=== PATIENT | male | born 1965 | race Caucasian/White ===

== ENCOUNTER 2016-12-14 20:38 | Emergency (ER) | payer OTHER ==
[~2016-12-14] VITALS: Ht 172.7 cm; Wt 132.1 kg
[2016-12-14 20:44] VITALS: TEMP 36.8; Ht 172.7 cm; Wt 132.1 kg
--- NOTE | 2016-12-14 21:10 | DIAGNOSTIC IMAGING REPORT ---
CHEST 2 VIEWS ROUTINE CLINICAL HISTORY: cough and fever x 2 wks cough COMPARISON STUDY: No previous studies for comparison. FINDINGS: The bones soft tissues and hemidiaphragms are normal. The cardiomediastinal silhouette is normal. The lungs are clear. The pulmonary vasculature is normal. Calcified granuloma right base IMPRESSION: No acute process. Electronically signed by: Kirk Stack M.D. 12/14/2016 9:07 PM Dictated Date/Time: 12/14/2016 9:07 PM
[2016-12-14] MEDS ORDERED: ALBUTEROL HFA 8 GM INHALER INH ONE (21:30)
[2016-12-14] MEDS ORDERED: AZITHROMYCIN 250 MG TAB PO ONE (21:30)
[2016-12-14] MEDS ORDERED: OXYCODONE IR HOME PACK PO ONE (21:30)
[2016-12-14] MEDS ORDERED: AZIT250T PO (21:36)
[2016-12-14] MEDS ORDERED: OXYC1TAB3 PO (21:36)
[2016-12-14 21:50] VITALS: BP 151/108; PULSE 90; O2SAT 97
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
[2017-02-10] MEDS ORDERED: ECHI1CAP PEG (09:28)
[2017-02-10] MEDS ORDERED: VITAMIN A PO (09:28)
[2017-02-10] MEDS ORDERED: [UNRECOGNIZED DRUG - OTHER] PO (09:28)
[2017-02-10] MEDS ORDERED: vitamin B PO (09:28)
[2017-02-10] MEDS ORDERED: LISI-461 PO (09:29)
== END 2016-12-14 21:51 | disposition home or self-care (01) ==
LOC: C.EDB 20:39 → C.EDC 21:51
DX: J20.9 Acute bronchitis, unspecified (principal); M54.12 Radiculopathy, cervical region; J43.9 Emphysema, unspecified; F17.210 Nicotine dependence, cigarettes, uncomplicated; I10 Essential (primary) hypertension; Z87.01 Personal history of pneumonia (recurrent); Z80.9 Family history of malignant neoplasm, unspecified; Z82.49 Family history of ischemic heart disease and other diseases of the circulatory system; Z79.899 Other long term (current) drug therapy

== ENCOUNTER 2017-01-10 15:52 | Emergency (ER) | payer OTHER ==
[~2017-01-10] VITALS: Ht 172.7 cm; Wt 130.5 kg
[~2017-01-10 15:52] MED LIST: AZIT250T PO; OXYC1TAB3 PO
[2017-01-10 15:58] VITALS: TEMP 36.8; Ht 172.7 cm; Wt 130.5 kg
[2017-01-10] MEDS ORDERED: MULT-506 PO (16:06)
[2017-01-10] MEDS ORDERED: HYDR-5688 PO (16:21)
[2017-01-10] MEDS ORDERED: PRED50TA PO (16:21)
[2017-01-10 16:36] VITALS: BP 143/90; PULSE 80; O2SAT 95
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
[2017-02-10] MEDS ORDERED: vitamin B PO (09:28)
[2017-02-10] MEDS ORDERED: VITAMIN A PO (09:28)
[2017-02-10] MEDS ORDERED: [UNRECOGNIZED DRUG - OTHER] PO (09:28)
[2017-02-10] MEDS ORDERED: ECHI1CAP PEG (09:28)
[2017-02-10] MEDS ORDERED: LISI-461 PO (09:29)
== END 2017-01-10 16:38 | disposition home or self-care (01) ==
LOC: C.EDB 15:54 → C.EDD 16:38
DX: M54.2 Cervicalgia (principal); M79.601 Pain in right arm; M79.602 Pain in left arm; G89.29 Other chronic pain; J43.9 Emphysema, unspecified; I10 Essential (primary) hypertension; Z87.01 Personal history of pneumonia (recurrent); Z80.9 Family history of malignant neoplasm, unspecified; Z82.49 Family history of ischemic heart disease and other diseases of the circulatory system; F17.210 Nicotine dependence, cigarettes, uncomplicated; Z79.899 Other long term (current) drug therapy

== ENCOUNTER → 2017-01-31 | Outpatient (CLI) | payer OTHER ==
[~2017-01-31] MED LIST changes: -AZIT250T PO; +ECHI1CAP PEG; +HYDR-5688 PO; +LISI-461 PO; +MISCCAP55; +MULT-506 PO; +OXYC-609; -OXYC1TAB3 PO; +PRVHFAIN INH; +VITAMIN A PO; +[UNRECOGNIZED DRUG - OTHER] PO; +vitamin B PO
--- NOTE | 2017-01-31 21:13 | DIAGNOSTIC IMAGING REPORT ---
BONY ORBITS 3 VIEWS CLINICAL HISTORY: MRI clearance. FINDINGS: 3 views of the bony orbits are obtained. Correlation is made with CT of the brain dated 03/27/2012. There is no radiodense/metallic foreign body seen in the region of the bony orbits. The bony orbits are intact as imaged. The visualized paranasal sinuses and the mastoid air cells appear clear. The imaged calvarium appears intact. IMPRESSION: There is no radiodense/metallic foreign body seen in the region of the bony orbits. Electronically signed by: Davis Hollingsworth M.D. 01/31/2017 9:12 PM Dictated Date/Time: 01/31/2017 9:11 PM
--- NOTE | 2017-01-31 22:23 | DIAGNOSTIC IMAGING REPORT ---
MRI OF THE CERVICAL SPINE WITHOUT IV CONTRAST CLINICAL HISTORY: Chronic neck pain. Upper extremity numbness. COMPARISON STUDY: No priors. TECHNIQUE: MRI of the cervical spine is performed utilizing various T1 and T2-weighted sequences in the axial and sagittal planes. IV contrast was not administered for this examination. The examination is degraded by motion artifact, and several sequences need to be repeated. FINDINGS: Cervical spine: Vertebral body height is maintained throughout the cervical spine. There is minimal anterolisthesis at C6-C7. Alignment is otherwise preserved. There is straightening of the cervical lordosis with reversal centered at C4. The atlantodental articulation appears maintained. The spinous processes are intact as visualized. No destructive bony lesion is seen. Marrow signal intensity is normal. Intervertebral discs: There is degenerative disc desiccation throughout the cervical spine. Mild loss of height is seen at C4-C5 through C6-C7. Spinal cord: The cervical spinal cord is normal in morphology and signal intensity. C2-C3: Facet arthropathy causes minimal left-sided neural foraminal stenosis. C3-C4: A posterior disc osteophyte complex effaces the ventral cord. Uncovertebral and facet arthropathy cause moderate to severe bilateral neuroforaminal stenosis. C4-C5: A posterior disc osteophyte complex effaces the ventral cord. The minimum AP canal diameter measures 6.5 mm. Uncovertebral and facet arthropathy contribute to severe bilateral neural foraminal stenosis. C5-C6: A posterior disc osteophyte complex eccentric to the right abuts the ventral cord. Uncovertebral and facet arthropathy cause moderate to severe right and mild left neural foraminal stenosis. C6-C7: A posterior disc osteophyte complex eccentric to the left abuts the ventral cord. Uncovertebral and facet arthropathy contribute to moderate left and [id number] right neural foraminal stenosis. C7-T1: Unremarkable. Soft tissues: The prevertebral and paraspinous soft tissues are normal in appearance. Brain parenchyma: Partially visualized brain parenchyma at the skull base is grossly normal in appearance. IMPRESSION: 1. Moderate to advanced multilevel cervical spondylosis with multilevel acquired compromise of the central canal. This is greatest at C4-C5 and C5-C6. See discussion for detailed level by level analysis. 2. The cervical spinal cord is normal in morphology and signal intensity. Dictated: 01/31/2017 10:11 PM Transcribed: 01/31/2017 10:23 PM [email or web address] Electronically signed by: Davis Hollingsworth M.D. 01/31/2017 10:29 PM Dictated Date/Time: 01/31/2017 10:11 PM
--- NOTE | 2017-03-10 08:11 | Discharge Instructions ---
Discharge Instructions Date of Service Mar 10, 2017. Admission Reason for Admission: Spinal Stenosis Discharge Discharge Diagnosis / Problem: stenos , partial paralysis Discharge Goals Goal(s): Improve function Activity Recommendations Activity Limitations: resume your previous activity Lifting Limitations: no more than 5 pounds Exercise/Sports Limitations: until after follow-up appointment May Resume Sexual Activity: after follow-up appointment Shower/Bathe: keep incision dry . Instructions / Follow-Up Instructions / Follow-Up MEDICATIONS: Please take your prescriptions as instructed at your pre-op appointment. SPECIAL CARE: The following information is intended to answer some of the common questions and concerns regarding your surgery. Each patient is an individual and receives individual counselling throughout the course of treatment, from diagnosis to surgery all the way through recovery. What follows is not an exhaustive list, but should be a useful guide to some of the common questions and concerns patients have regarding their surgeries. These are not provided to keep you from calling us; rather, they give you something accurate and concrete to reference as you recover from your procedure. If you need us, we are available to you. As always, if you are not sure about something, call us at [phone]. MEDICAL EMERGENCIES: For these conditions, call 911 or go to your local hospital-based Emergency Department - not [facility] or equivalent. * Paralysis * Severe chest pain or difficulty breathing * Swelling or redness of either leg Spine procedures can be rather complex and though complications are rare, they do occur. In such cases, effective advice regarding emergency situations cannot always be addressed over the telephone. You may be referred to the emergency department for more effective management of your problem. Activity Limitations: It is important to give your body time to heal, so please limit your activities : * In general, don't do anything that moves your spine too much. You should avoid contact sports, twisting or heavy lifting while you recover. * 5-10 pounds is all you should attempt to lift. * You should not plan on driving for approximately 3 weeks and you should avoid traveling more than 30-45 minutes at a time. Longer trips should be broken down with walking breaks spaced appropriately. * Physical therapy is not usually required. * Walking and good posture practices will help you recover and regain your function. * Avoid straining or sudden changes in position. * In general, the goal is to take it easy and recover. Don't cause any new problems. Just relax. Showers: * Do not take a bath, use a Jacuzzi or hot tub or otherwise submerge your incision. * It is usually safe to take a shower 4-5 days after your surgery. * Your incision does not require any special creams or ointments. * Simply clean it with soap and water, dry and re-dress with a clean bandage afterwards. Incision: * Keep incision clean, dry and protected until your first follow-up appointment. * Some amount of drainage and redness is normal. Any drainage should be fairly clear and not have a foul odor. * If you feel anything is wrong or you have excessive drainage, please call us. * Your stitches and salina will be removed 10-14 days after your surgery. At the time of your first post-op visit. * Neck surgeries are typically closed with a suture underneath the skin. The steri-strips over the incision should be maintained until we see you in the office. Bracing: * You may be provided with a back or neck brace to encourage good posture and prevent injury. It will remind you not to do too much as you heal and will alert others to the fact that you have had a surgery. * Back braces may be removed for showers and when you are resting at home. They must be worn when you are walking around for any period of time or for travel. * For neck surgery, you will likely be provided with two cervical collars. The soft collar ([place] or foam rubber) is worn most commonly throughout the day and while sleeping. The plastic collar (provided at the hospital) is for showering/bathing. * Except while eating, collars should remain in place. More specifically, bracing is provided for a purpose and should be worn. * Please obtain your brace or collars prior to your operation and bring them to the hospital with you on the day of surgery. * You should also bring your collars to your post-op appointment with Dr. Menendez. You should always take good care of your body and practice healthy habits, especially following surgery. You should: * Follow your doctor's treatment plan * Sit and stand properly with good posture (ears over shoulders, shoulders over hips) Don't slouch * Learn to lift correctly * Exercise regularly (low-impact aerobic exercise is especially good, but check with your doctor first) * Generally, be up and walking for 5-10 minutes at a time at least 3-4 times per day from the day you get home * Increasing walking to tolerance until you can walk for 20-30 minutes at a time * Attain and maintain a healthy body weight * Eat healthy foods ( a well-balanced, low-fat diet rich in fruits and vegetables) and get enough calcium * Avoid excessive use of alcohol When to call our office - If you notice any of the following: * Increased pain not relieve by pain medicine * Fevers greater then 100 degrees F, chills or flu symptoms * Increased redness around incision * Drainage from the incision that is not clear * Any foul smelling drainage * Swelling or fluid collection beneath the skin Miscellaneous: * In the hospital, you may be given a walker or cane for support while walking. These are temporary needs and are intended to prevent injuries due to falls. You may discontinue them when you feel strong and steady enough on your feet. * Sleep in a comfortable position. We find that many patients find a lounge chair or recliner with several pillows to be beneficial in the early post-operative period. * The support stockings should be used for 7-10 days and may be discontinued when you are back to walking more and conducting usual household activities. No problem is insignificant. We are here to help you and get you well. Contact us at [phone]. Definitions: Foraminotomy: If part of the disc or a bone spur (osteophyte) is pressing on a nerve as it leaves the vertebra (through an exit called the foramen), a foraminotomy may be done. Otomy means "to make an opening." A foraminotomy is making the opening of the foramen larger, so the nerve can exit without being compressed. Laminotomy: Similar to the foraminotomy, a laminotomy makes a larger opening, this time in your bony plate protecting your spinal canal and spinal cord (the lamina). The lamina may be pressing on your nerve, so the surgeon may make more room for the nerves using a laminotomy. Laminectomy: Sometimes, a laminotomy is not sufficient. The surgeon may need to remove all or part of the lamina. This procedure is called a laminectomy. This can often be done at many levels without any harmful effects. Current Hospital Diet Patient's current hospital diet: Discharge Diet Recommended Diet: Regular Diet Pending Studies Studies pending at discharge: no Medical Emergencies . Who to Call and When: Medical Emergencies: If at any time you feel your situation is an emergency, please call 911 immediately. . Non-Emergent Contact Non-Emergency issues call your: Surgeon . "Provider Documentation" section prepared by Jim Menendez. . VTE Core Measure Inpt VTE Proph given/why not?: Treatment not indicated
--- NOTE | 2017-03-10 08:14 | Progress Note ---
Subjective Date of Service: Mar 10, 2017. Subjective Pt evaluation today including: conversation w/ patient Voiding: no voiding problems Patient is alert oriented has some return of feeling to his right upper extremity minimal to his left lower extremity upper extremity. He is alert oriented mentation clear no chest pain shortness of breath or abdominal discomfort. Problem List Medical Problems: (1) Acute bronchitis Status: Acute (2) Arm pain Status: Acute (3) Depression Status: Acute (4) Neck pain, chronic Status: Acute (5) Radiculitis, cervical Status: Acute (6) Suicidal ideation Status: Acute (7) Suicide gesture Status: Acute Review of Systems Constitutional: + see HPI Assessment and Plan He is 24 hours post surgery which was two-level cervical anterior approach for spinal cord compression. He's doing well the short run. Left carpal tunnel release understate same anesthetic. Continued [facility] stay due to: inadequate oral pain control, ambulation difficulties, home environment unsafe for pt Discharge planning: home with home health
== END | disposition home or self-care (01) ==
LOC: C.MRI 20:26
PROVIDERS: ATTEND Orthopaedic Surgery Orthopaedic Surgery of the Spine
DX: M48.02 Spinal stenosis, cervical region (principal); R20.8 Other disturbances of skin sensation

== ENCOUNTER → 2017-02-10 | Outpatient (CLI) | payer OTHER ==
--- NOTE | 2017-02-10 08:52 | DIAGNOSTIC IMAGING REPORT ---
CT OF THE CERVICAL SPINE CLINICAL HISTORY: CERVICAL SPONDYLOSIS NUMBNESS AND TINGLING IN THE ARMS AND HANDS COMPARISON STUDY: MRI the cervical spine dated 01/31/2017 CT DOSE: 301.59 mGy.cm TECHNIQUE: CT scan of the cervical spine was performed from the skull base to the thoracic inlet. Images are reviewed in the axial, sagittal, and coronal planes. IV contrast was not administered for this examination. FINDINGS: The visualized portions of the lung apices reveal no evidence of pneumothorax. The prevertebral soft tissues are normal. No fractures or subluxations are visualized. There are multilevel degenerative changes. There is prominent anterior osteophytic spurring at multiple levels. At the C3-4 level, there is mild spinal canal narrowing and bilateral foraminal narrowing. At the C4-5 level, there is mild spinal canal narrowing and bilateral foraminal narrowing. The C5-6 level, there is mild to moderate spinal canal narrowing bilateral foraminal narrowing right more severe than left. IMPRESSION: 1. No evidence of acute fracture or traumatic subluxation 2. Multilevel spondylitic changes with multilevel spinal canal narrowing, and multilevel foraminal narrowing due to uncinate spurring. Electronically signed by: Logan Velez M.D. 02/10/2017 8:51 AM Dictated Date/Time: 02/10/2017 8:47 AM
== END | disposition home or self-care (01) ==
LOC: C.CTS 07:46
PROVIDERS: ATTEND Orthopaedic Surgery Orthopaedic Surgery of the Spine
DX: M47.812 Spondylosis without myelopathy or radiculopathy, cervical region (principal)

== ENCOUNTER 2017-03-09 05:34 | Observation (INO) | payer OTHER ==
[2017-02-10 09:30] VITALS: BMI 43.0
--- NOTE | 2017-02-10 10:14 | PAT Medication Instructions ---
Service Date Feb 10, 2017. Current Home Medication List Echinacea (Echinacea), 3 TAB PEG QAM Hydrocodone/Acetaminophen 5MG/325MG ([place] 5MG/325MG), 1-2 TABLET PO Q6 PRN for Pain Lisinopril (Zestril), 10 MG PO QAM Multivitamin (Multivitamin), 1 TAB PO DAILY [vitaamin d], 1 TAB PO QAM [vitamin B], 1 TAB PO QAM [vitmin A], 1 TAB PO QAM Medication Instructions For Your Scheduled Surgery - Hold the following medications 2 weeks prior to surgery: Echinacea (Echinacea), 3 TAB PEG QAM - Hold the following medications the morning of surgery: [vitamin B], 1 TAB PO QAM [vitmin A], 1 TAB PO QAM Multivitamin (Multivitamin), 1 TAB PO DAILY [vitaamin d], 1 TAB PO QAM Lisinopril (Zestril), 10 MG PO QAM - Take the following medications the morning of surgery with a sip of water: Hydrocodone/Acetaminophen 5MG/325MG ([place] 5MG/325MG), 1-2 TABLET PO Q6 PRN for Pain (okay to take up to 4 hours prior to surgery if needed) - Take the following medications as scheduled the night before surgery: Hydrocodone/Acetaminophen 5MG/325MG ([place] 5MG/325MG), 1-2 TABLET PO Q6 PRN for Pain (if needed) If you have any questions please call us at [phone] or [phone] or [phone]
[2017-02-10 10:47] LABS: BASO % 0.5 %; BASO ABS # 0.07 K/uL (0-0.2); COMPLETE YES; EOS % 3.1 %; HEMATOCRIT 44.4 % (42-52); IG% 0.8 %; LYMPH % 27.9 %; LYMPH ABS # 3.66 K/uL (1.2-3.4); MEAN CELL VOLUME 93.5 fL (80-100); MEAN CORPUSCULAR HEMOGLOBIN 31.4 pg (25-34); MEAN CORPUSCULAR HGB CONC 33.6 g/dl (32-36); MONO % 8.9 %; NEUT % 58.8 %; PLATELET COUNT 260 K/uL (130-400); RED BLOOD COUNT 4.75 M/uL (4.7-6.1); WHITE BLOOD COUNT 13.14 K/uL (4.8-10.8)
[2017-02-10 10:56] LABS: INR 0.9 (0.9-1.1)
[2017-02-10 11:11] LABS: URINE APPEARANCE CLEAR (CLEAR); URINE BILIRUBIN NEG (NEG); URINE COLOR DK YELLOW; URINE NITRITE NEG (NEG); URINE PH 5.5 (4.5-7.5); URINE SPECIFIC GRAVITY 1.028 (1.000-1.030); UROBILINOGEN NEG (NEG)
[2017-02-10 11:15] LABS: MANUAL MICROSCOPIC REQUIRED? NO; REVIEW REQ? NO
[2017-02-10 11:44] LABS: BUN/CREATININE RATIO 14.3 (10-20); CREATININE 1.2 mg/dl (0.60-1.40); POTASSIUM 4.4 mmol/L (3.5-5.1)
[2017-02-10 12:45] LABS: CALCIUM 9.1 mg/dl (8.5-10.1)
[~2017-03-09] VITALS: Ht 172.7 cm; Wt 129.9 kg
[2017-03-09] VITALS (11 sets, daily range): BP systolic 104–145; BP diastolic 69–90; PULSE 69–91; TEMP 36.5–36.9; O2SAT 94–97; Ht 172.7 cm; Wt 129.9 kg
[~2017-03-09 05:34] MED LIST changes: -MISCCAP55; -OXYC-609; -PRVHFAIN INH
[2017-03-09] MEDS ORDERED: OXYC-609 (05:55)
[2017-03-09] MEDS ORDERED: MISCCAP55 (05:56)
[2017-03-09] MEDS ORDERED: CEFAZOLIN 3000 MG/65 ML D5W 65 ML IV SCH (06:00)
[2017-03-09] MEDS ORDERED: NSS 1000ML IV SCH (06:00)
[2017-03-09] MEDS ORDERED: LACTATED RINGER'S 1000ML 1,000 ML IV SCH (06:00)
[2017-03-09] MEDS ORDERED: MIDAZOLAM HCL 1 MG/ML 2ML VIAL ONE (06:50)
[2017-03-09] MEDS ORDERED: FENTANYL CITRATE INJ 50 MCG/1 ML 2 ML VIAL ONE ×2 (06:50→09:14)
[2017-03-09] MEDS ORDERED: HYDROmorphone INJ 2 MG/ML SYR/VIAL ONE (06:51)
[2017-03-09] MEDS ORDERED: KETAMINE HCL INJ 50 MG/ML 10 ML VIAL ONE (06:51)
--- NOTE | 2017-03-09 07:00 | History and Physical ---
History & Physical Date Mar 09, 2017. Chief Complaint Neck and bilateral upper extremity pain. Weakness also sensation History of Present Illness The patient is a 52 year old male with complaints of lower upper extremity difficulties numbness tingling weakness to biceps and deltoid function. Mr. bilateral lower bilateral upper extremities left greater than right. He is here for elective surgery today for anterior cervical discectomy C3 through C5 F carpal tunnel release Past Medical/Surgical History Medical Problems: (1) Cardiac contusion (2) Emphysema of lung (3) Hypertension (4) Knee effusion (5) Leg abrasion (6) Pneumonia Additional History Hepatic Disease: No Endocrine Disorder: No Kidney Disease: No Hypertension: Yes Heart Disease: No Bleeding Tendencies: No Infectious Diseases: No Allergies Coded Allergies: No Known Allergies (Unverified , 03/09/17) Home Medications Scheduled Echinacea (Echinacea), 3 TAB PEG QAM Lisinopril (Zestril), 10 MG PO QAM Multivitamin (Multivitamin), 1 TAB PO DAILY [vitaamin d], 1 TAB PO QAM [vitamin B], 1 TAB PO QAM [vitmin A], 1 TAB PO QAM Scheduled PRN Hydrocodone/Acetaminophen 5MG/325MG ([place] 5MG/325MG), 1-2 TABLET PO Q6 PRN for Pain Miscellaneous Medications Misc Natural Products (Dandelion Root) Oxycodone HCl (Oxycodone HCl) Physical Examination Skin: warm/dry, no rash Eyes: normal inspection, sclerae normal ENT: normal ENT inspection Head: normocephalic Neck: trachea midline Respiratory/Chest: no respiratory distress Cardiovascular: regular rate, rhythm Abdomen / GI: normal bowel sounds Back: normal inspection Extremities: + pertinent finding (Jazzy a deltoid and biceps function. Loss of sensation C4 5 C6 nerve root distribution. Positive Phalen's test positive Nehls sign also has a Spurling's maneuver patient to the left and right reproduces his pain) Neurologic/Psych: + pertinent finding (loss of sensation loss of strength and positive Tinel's sign) Diagnosis Spinal cord compression C3 4 C4 5 cervical spine. Bilateral carpal tunnel syndrome left greater than right ASA Classification: ASA Class III Plan of Treatment Anterior cervical discectomy and fusion C3 4 C4 5 cervical spine iliac crest bone graft. Carpal tunnel release on the left
[2017-03-09] MEDS ORDERED: THROMBIN FOR SOLN 20000 UNIT KIT ONE ×2 (07:01→07:03)
[2017-03-09] MEDS ORDERED: BACITRACIN 50000 UNIT VIAL ONE (07:01)
[2017-03-09] MEDS ORDERED: GELATIN SPONGE SZ 100 ONE (07:01)
[2017-03-09] MEDS ORDERED: BUPIVACAINE/EPINEPHRINE 0.25% 1:200,000 30 ML VIAL ONE ×2 (07:04→07:05)
[2017-03-09] MEDS ORDERED: BUPIVACAINE/EPINEPHRINE 0.5% MPF 1:200,000 10 ML VIAL ONE (07:15)
[2017-03-09] MEDS ORDERED: ACETAMINOPHEN 1000 MG/100 ML IV IV ONE (07:15)
[2017-03-09] MEDS ORDERED: EpHEDrine SULFATE INJ 50 MG/ML AMP IV PRN (08:15)
[2017-03-09] MEDS ORDERED: PHENYLEPHRINE 100MCG/ML 5ML SYR IV PRN (08:15)
[2017-03-09] MEDS ORDERED: ONDANSETRON INJ 2 MG/ML 2 ML VIAL IV PRN ×3 (08:15→10:15)
[2017-03-09] MEDS ORDERED: ATROPINE SULFATE 0.1 MG/ML 5ML SYR IV PRN (08:15)
[2017-03-09] MEDS ORDERED: LABETALOL HCL IV 5 MG/ML 20ML IV PRN (08:15)
[2017-03-09] MEDS ORDERED: NALOXONE HCL 0.4 MG/1 ML VIAL/CARP IV PRN (08:15)
[2017-03-09] MEDS ORDERED: FLUMAZENIL 0.1 MG/1 ML 10 ML VIAL IV PRN (08:15)
[2017-03-09] MEDS ORDERED: PHENYLEPHRINE HCL INJ 10 MG/ML VIAL ONE (08:51)
[2017-03-09] MEDS ORDERED: ONDANSETRON INJ 2 MG/ML 2 ML VIAL ONE (08:51)
[2017-03-09] MEDS ORDERED: DEXAMETHASONE SOD INJ 4 MG/ML VIAL ONE (08:51)
[2017-03-09] MEDS ORDERED: LIDOCAINE HCL 2% 2 ML VIAL (20MG/ML) ONE (08:51)
[2017-03-09] MEDS ORDERED: PROPOFOL IV EMULSION 10 MG/ML 20 ML VIAL IV ONE (08:51)
[2017-03-09] MEDS ORDERED: WATER, STERILE FOR INJ 10 ML VIAL ONE (08:56)
[2017-03-09] MEDS ORDERED: LARYING-O-JET KIT (LTA) ONE ×2 (08:56)
[2017-03-09] MEDS ORDERED: GLYCOPYRROLATE INJ 0.2 MG/ML VIAL ONE (09:39)
[2017-03-09] MEDS ORDERED: NEOSTIGMINE METHYLSULFATE 5 MG/5 ML SYR ONE (09:39)
--- NOTE | 2017-03-09 09:57 | DIAGNOSTIC IMAGING REPORT ---
SPINE ONE VIEW, ANY LEVEL HISTORY: Fusion. FLUOROSCOPY TIME: 6 seconds. FINDINGS: Intraoperative fluoroscopy was provided for the cervical. 1 fluoroscopic spot images were obtained. IMPRESSION: Fluoroscopy provided for a cervical fusion. The above report was generated using voice recognition software. It may contain grammatical, syntax or spelling errors. Electronically signed by: Kirk Stack M.D. 03/09/2017 9:56 AM Dictated Date/Time: 03/09/2017 9:55 AM
[2017-03-09] MEDS: HYDROmorphone INJ 1 MG/ML SYR IV PRN ×8 (10:05→11:20)
--- NOTE | 2017-03-09 10:05 | [facility] Operative Report ---
Operative Report Operative Date Mar 09, 2017. Pre-Operative Diagnosis Spinal cord compression C3 4 C4 5 cervical spine. Bilateral carpal tunnel syndrome left greater than right Post-Operative Diagnosis Spinal cord compression C3 4 C4 5 cervical spine. Bilateral carpal tunnel syndrome left greater than right Procedure(s) Performed C3-C4, C4-C5 Anterior Cervical Discectomy with globus coalition at each intervertebral discectomy Left Carpal Tunnel Release Surgeon Dr. Jim Menendez Process Control Specialist Surgeon(s) Jose E Ordoñez PA-C Estimated Blood Loss 5mL Findings Severe carpal tunnel syndrome, vital cord compression C3 4 C4 5 cervical spine Specimens None per surgeon Complication(s) None Disposition Recovery Room / PACU Indications Severe carpal tunnel syndrome and spinal cord compression C3 4 C4 5 the cervical spine Description of Procedure Patient was taken to the operating room and intubated anesthetic provided to the patient. He is brought onto the operative Fredis table. First addressed his left carpal tunnel. A tourniquet applied to his left upper humerus he was scrubbed with Betadine painted with ChloraPrep and sterile. An commence with surgery outlining a skin incision over the palmar aspect of his hand. Platelet tourniquet to 250 of mercury. A skin incision fascial incision dissected the palmaris fascia and divided transverse carpal ligament in its entirety. We then irrigated closed with 4-0 nylon suture sterile dressing applied patient then prepped and draped for his cervical spine procedure. Our graft I pounds of traction placed arms taped with side-ite bump placed under his scapula shaved scrub prep sterile. We made a transverse skin incision roughly over the C4 area of the cervical spine secondary soft tissue was a classic Emanuel-Wilson approach rearward to come down on the vertebral area at C2-3 and counted down 2345 of the cervical spine. Her graft we did formal discectomies at each of these intervals C3 4 C4 5 the cervical spine we're back and through the posterior longitudinal ligament out laterally to the uncovertebral joints bilaterally. He discectomy was completely evacuated. Then with the Globus spinal coalition implant was packed with allograft placed into the discectomy areas In the place secured superior and inferior with 14 mm cortical cancellus screws. We irrigated closed in layers with 2-0 Vicryl suture for all Monocryl suture sterile dressings applied patient placed in a cervical collar and returned to recovery room satisfactory and stable no apparent interoperative complications. Estimated blood loss less than 5 mL sponge and needle count correct at the close of procedure. Thank you I attest to the content of the Intraoperative Record and any orders documented therein. Any exceptions are noted below.
[2017-03-09] MEDS ORDERED: MAGNESIUM HYDROXIDE SUSP 30 ML UDC PO PRN (10:15)
[2017-03-09] MEDS ORDERED: HYDROmorphone INJ 0.5 MG/0.5 ML SYR IV PRN ×2 (10:15→11:00)
[2017-03-09] MEDS ORDERED: OXYCODONE/ACETAMINOPHEN 5-325 TAB PO PRN (10:15)
[2017-03-09] MEDS ORDERED: HYDROmorphone INJ 1 MG/ML SYR IV PRN ×2 (10:15)
[2017-03-09] MEDS ORDERED: PROMETHAZINE HCL INJ 12.5 MG in SODIUM CHLORIDE 0.9% 50ML 50 ML IV PRN (10:15)
[2017-03-09] MEDS ORDERED: LORAZEPAM 1 MG TAB PO PRN (10:15)
[2017-03-09] MEDS ORDERED: ACETAMINOPHEN 325 MG TAB PO PRN (10:15)
[2017-03-09] MEDS ORDERED: LORAZEPAM INJ 1 MG in SYRINGE 0 ML IV PRN (10:15)
[2017-03-09] MEDS: MoRPHine SULFATE 10 MG/ML CARP/VIAL IV PRN ×5 (10:25→10:45)
[2017-03-09] MEDS ORDERED: HydrALAZINE HCL 20 MG/ML VIAL ONE (10:30)
[2017-03-09] MEDS ORDERED: NURSING VERBAL MED ORDER ONE ×2 (10:45→17:00)
[2017-03-09] MEDS: MEPERIDINE HCL 25 MG/ML CARP IV PRN ×3 (10:50→11:25)
[2017-03-09] MEDS ORDERED: MEPERIDINE HCL 25 MG/ML CARP IV PRN (11:30)
--- NOTE | 2017-03-09 11:51 | Anesthesiology Progress Note ---
Anesthesia Post Op Note Date & Time Mar 09, 2017 at 11:50 Vital Signs Pain Intensity: 5 Vital Signs Past 12 Hours Date Time Temp Pulse Resp B/P (MAP) Pulse Ox O2 Delivery O2 Flow Rate FiO2 03/09/17 10:56 157/86 03/09/17 10:55 80 24 03/09/17 10:55 80 24 95 03/09/17 10:51 151/82 03/09/17 10:50 77 24 96 03/09/17 10:50 77 24 03/09/17 10:46 159/96 03/09/17 10:45 74 22 03/09/17 10:45 74 22 97 03/09/17 10:41 161/100 03/09/17 10:40 68 19 98 03/09/17 10:40 69 19 03/09/17 10:36 174/103 03/09/17 10:35 69 22 03/09/17 10:35 69 22 98 03/09/17 10:31 170/115 03/09/17 10:30 73 20 03/09/17 10:30 74 20 97 03/09/17 10:26 182/107 03/09/17 10:25 70 22 03/09/17 10:25 70 22 99 03/09/17 10:21 185/103 03/09/17 10:20 71 20 98 03/09/17 10:20 71 03/09/17 10:16 187/108 03/09/17 10:15 73 21 03/09/17 10:15 73 21 99 03/09/17 10:11 191/104 03/09/17 10:10 89 20 03/09/17 10:10 89 20 99 03/09/17 10:07 181/110 03/09/17 09:55 36.8 88 16 180/105 95 Mask 10 03/09/17 05:57 36.5 87 16 145/90 95 Room Air Notes Mental Status: alert / awake / arousable, participated in evaluation Pt Amnestic to Procedure: Yes Nausea / Vomiting: adequately controlled Pain: adequately controlled, improving with treatment Airway Patency, RR, SpO2: stable & adequate BP & HR: stable & adequate Hydration State: stable & adequate Anesthetic Complications: no major complications apparent The patient received ketamine and Ofirmev in the OR. He has required a large amount of opioids in PACU but his pain is now at his baseline.
[2017-03-09] MEDS: SODIUM CHLORIDE 0.9% 1000ML 1,000 ML IV SCH ×2 (12:44→22:25)
[2017-03-09] MEDS ORDERED: IV FLUIDS COMPLETED PRN (12:45)
[2017-03-09] MEDS ORDERED: ALBUT/IPRATROP 3MG/0.5MG NEB 3 ML VIAL INH PRN (13:30)
[2017-03-09] MEDS ORDERED: ALBUTEROL HFA 8 GM INHALER INH PRN (13:30)
[2017-03-09] MEDS ORDERED: PRVHFAIN INH (13:32)
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
[2017-03-09] MEDS: CEFAZOLIN IV 1,000 MG in DEXTROSE 5% 50ML 50 ML IV SCH ×2 (15:41→23:44)
[2017-03-09] MEDS: KETOROLAC TROMETHAMINE 30 MG/ML VIAL IV. SCH ×2 (15:43→21:31)
[2017-03-09] MEDS: NICOTINE 14 MG/24 HR TDSY TD SCH (16:11)
[2017-03-09] MEDS: OXYCODONE/ACETAMINOPHEN 5-325 TAB PO PRN ×2 (17:21→21:34)
[2017-03-09] MEDS: DOCUSATE SODIUM 100 MG CAP PO SCH (21:30)
[2017-03-09] MEDS: HYDROmorphone INJ 2 MG/ML SYR/VIAL IV PRN (22:26)
[2017-03-10] VITALS (12 sets, daily range): BP systolic 130–171; BP diastolic 74–101; PULSE 55–81; TEMP 36.4–37; O2SAT 92–97
[2017-03-10] MEDS: HYDROmorphone INJ 2 MG/ML SYR/VIAL IV PRN ×6 (01:22→22:31)
[2017-03-10] MEDS: OXYCODONE/ACETAMINOPHEN 5-325 TAB PO PRN ×3 (03:25→16:25)
[2017-03-10] MEDS: KETOROLAC TROMETHAMINE 30 MG/ML VIAL IV. SCH ×3 (03:48→16:24)
[2017-03-10] MEDS ORDERED: BISACODYL 10 MG SUPP PR PRN (04:45)
[2017-03-10] MEDS ORDERED: BISACODYL 5 MG TABEC PO PRN (04:45)
[2017-03-10 05:44] LABS: BASO % 0.2 %; BASO ABS # 0.03 K/uL (0-0.2); COMPLETE YES; EOS % 0.8 %; HEMATOCRIT 40.2 % (42-52); IG% 0.3 %; LYMPH % 18.2 %; LYMPH ABS # 2.75 K/uL (1.2-3.4); MEAN CORPUSCULAR HEMOGLOBIN 31.4 pg (25-34); MEAN CORPUSCULAR HGB CONC 34.1 g/dl (32-36); MEAN PLATELET VOLUME 9.6 fL (7.4-10.4); MONO % 10.7 %; NEUT % 69.8 %; PLATELET COUNT 247 K/uL (130-400); RED BLOOD COUNT 4.37 M/uL (4.7-6.1); WHITE BLOOD COUNT 15.08 K/uL (4.8-10.8)
[2017-03-10 06:15] LABS: BUN/CREATININE RATIO 13.7 (10-20); CALCIUM 8.6 mg/dl (8.5-10.1); CREATININE 0.76 mg/dl (0.60-1.40); POTASSIUM 3.4 mmol/L (3.5-5.1)
--- NOTE | 2017-03-10 07:42 | Anesthesiology Progress Note ---
Anesthesia Post Op Note Date & Time Mar 10, 2017 at 07:42 Vital Signs Pain Intensity: 7.0 Vital Signs Past 12 Hours Date Time Temp Pulse Resp B/P (MAP) Pulse Ox O2 Delivery O2 Flow Rate FiO2 03/10/17 06:11 94 Room Air 03/10/17 05:00 36.4 71 20 146/83 97 Nasal Cannula 2.0 03/10/17 03:00 36.4 76 16 130/74 97 Nasal Cannula 2.0 03/10/17 01:00 36.4 69 16 144/89 97 Nasal Cannula 2.0 97 03/09/17 23:15 97 03/09/17 23:15 97 Nasal Cannula 2.0 Humidified Oxygen 03/09/17 23:05 36.7 69 18 120/75 96 Nasal Cannula 2.0 Humidified Oxygen 03/09/17 21:05 36.5 70 18 126/73 95 Nasal Cannula 2.0 Humidified Oxygen Notes Mental Status: alert / awake / arousable, participated in evaluation Pt Amnestic to Procedure: Yes Nausea / Vomiting: adequately controlled Pain: adequately controlled Airway Patency, RR, SpO2: stable & adequate BP & HR: stable & adequate Hydration State: stable & adequate Anesthetic Complications: no major complications apparent
[2017-03-10] MEDS ORDERED: ALUMINUM/MAGNESIUM SUSP 30 ML UDC PO PRN (08:15)
[2017-03-10] MEDS ORDERED: NURSING VERBAL MED ORDER ONE ×2 (08:15→11:30)
[2017-03-10] MEDS: CEFAZOLIN IV 1,000 MG in DEXTROSE 5% 50ML 50 ML IV SCH (08:18)
[2017-03-10] MEDS: MULTIVITAMIN TAB PO SCH (08:32)
[2017-03-10] MEDS: DOCUSATE SODIUM 100 MG CAP PO SCH ×2 (08:32→20:35)
[2017-03-10] MEDS: POLYETHYLENE (MIRALAX) 17 GM PACK PO SCH (08:32)
[2017-03-10] MEDS: LISINOPRIL 10 MG TAB PO SCH (08:33)
[2017-03-10] MEDS: NICOTINE 14 MG/24 HR TDSY TD SCH (08:34)
[2017-03-10] MEDS: SODIUM CHLORIDE 0.9% 1000ML 1,000 ML IV SCH (11:01)
[2017-03-11] MEDS: OXYCODONE/ACETAMINOPHEN 5-325 TAB PO PRN ×3 (02:06→12:48)
[2017-03-11 03:28] VITALS: BP 119/68; PULSE 61; TEMP 36.4; O2SAT 95
[2017-03-11 06:21] VITALS: BP 151/92; PULSE 60; TEMP 36.6; O2SAT 93
[2017-03-11 06:27] VITALS: BP 139/89; PULSE 60; TEMP 36.5; O2SAT 95
[2017-03-11] MEDS: MULTIVITAMIN TAB PO SCH (08:39)
[2017-03-11] MEDS: DOCUSATE SODIUM 100 MG CAP PO SCH (08:39)
[2017-03-11] MEDS: LISINOPRIL 10 MG TAB PO SCH (08:40)
[2017-03-11] MEDS: NICOTINE 14 MG/24 HR TDSY TD SCH (08:40)
[2017-03-11] MEDS: POLYETHYLENE (MIRALAX) 17 GM PACK PO SCH (08:42)
--- NOTE | 2017-03-11 12:33 | Discharge Instructions ---
Discharge Instructions Date of Service Mar 11, 2017. Admission Reason for Admission: Cervical Stenosis; Cervical Spondylosis; Left Carp Discharge Discharge Diagnosis / Problem: same Discharge Goals Goal(s): Improve function Activity Recommendations Activity Limitations: as noted below Lifting Limitations: until after follow-up appointment Exercise/Sports Limitations: until after follow-up appointment May Resume Sexual Activity: after follow-up appointment Shower/Bathe: keep incision dry Driving or Machine Use: . Instructions / Follow-Up Instructions / Follow-Up MEDICATIONS: Please take your prescriptions as instructed at your pre-op appointment. SPECIAL CARE: The following information is intended to answer some of the common questions and concerns regarding your surgery. Each patient is an individual and receives individual counselling throughout the course of treatment, from diagnosis to surgery all the way through recovery. What follows is not an exhaustive list, but should be a useful guide to some of the common questions and concerns patients have regarding their surgeries. These are not provided to keep you from calling us; rather, they give you something accurate and concrete to reference as you recover from your procedure. If you need us, we are available to you. As always, if you are not sure about something, call us at [phone]. MEDICAL EMERGENCIES: For these conditions, call 911 or go to your local hospital-based Emergency Department - not [facility] or equivalent. * Paralysis * Severe chest pain or difficulty breathing * Swelling or redness of either leg Spine procedures can be rather complex and though complications are rare, they do occur. In such cases, effective advice regarding emergency situations cannot always be addressed over the telephone. You may be referred to the emergency department for more effective management of your problem. Activity Limitations: It is important to give your body time to heal, so please limit your activities : * In general, don't do anything that moves your spine too much. You should avoid contact sports, twisting or heavy lifting while you recover. * 5-10 pounds is all you should attempt to lift. * You should not plan on driving for approximately 3 weeks and you should avoid traveling more than 30-45 minutes at a time. Longer trips should be broken down with walking breaks spaced appropriately. * Physical therapy is not usually required. * Walking and good posture practices will help you recover and regain your function. * Avoid straining or sudden changes in position. * In general, the goal is to take it easy and recover. Don't cause any new problems. Just relax. Showers: * Do not take a bath, use a Jacuzzi or hot tub or otherwise submerge your incision. * It is usually safe to take a shower 4-5 days after your surgery. * Your incision does not require any special creams or ointments. * Simply clean it with soap and water, dry and re-dress with a clean bandage afterwards. Incision: * Keep incision clean, dry and protected until your first follow-up appointment. * Some amount of drainage and redness is normal. Any drainage should be fairly clear and not have a foul odor. * If you feel anything is wrong or you have excessive drainage, please call us. * Your stitches and salina will be removed 10-14 days after your surgery. At the time of your first post-op visit. * Neck surgeries are typically closed with a suture underneath the skin. The steri-strips over the incision should be maintained until we see you in the office. Bracing: * You may be provided with a back or neck brace to encourage good posture and prevent injury. It will remind you not to do too much as you heal and will alert others to the fact that you have had a surgery. * Back braces may be removed for showers and when you are resting at home. They must be worn when you are walking around for any period of time or for travel. * For neck surgery, you will likely be provided with two cervical collars. The soft collar ([place] or foam rubber) is worn most commonly throughout the day and while sleeping. The plastic collar (provided at the hospital) is for showering/bathing. * Except while eating, collars should remain in place. More specifically, bracing is provided for a purpose and should be worn. * Please obtain your brace or collars prior to your operation and bring them to the hospital with you on the day of surgery. * You should also bring your collars to your post-op appointment with Dr. Menendez. You should always take good care of your body and practice healthy habits, especially following surgery. You should: * Follow your doctor's treatment plan * Sit and stand properly with good posture (ears over shoulders, shoulders over hips) Don't slouch * Learn to lift correctly * Exercise regularly (low-impact aerobic exercise is especially good, but check with your doctor first) * Generally, be up and walking for 5-10 minutes at a time at least 3-4 times per day from the day you get home * Increasing walking to tolerance until you can walk for 20-30 minutes at a time * Attain and maintain a healthy body weight * Eat healthy foods ( a well-balanced, low-fat diet rich in fruits and vegetables) and get enough calcium * Avoid excessive use of alcohol When to call our office - If you notice any of the following: * Increased pain not relieve by pain medicine * Fevers greater then 100 degrees F, chills or flu symptoms * Increased redness around incision * Drainage from the incision that is not clear * Any foul smelling drainage * Swelling or fluid collection beneath the skin Miscellaneous: * In the hospital, you may be given a walker or cane for support while walking. These are temporary needs and are intended to prevent injuries due to falls. You may discontinue them when you feel strong and steady enough on your feet. * Sleep in a comfortable position. We find that many patients find a lounge chair or recliner with several pillows to be beneficial in the early post-operative period. * The support stockings should be used for 7-10 days and may be discontinued when you are back to walking more and conducting usual household activities. No problem is insignificant. We are here to help you and get you well. Contact us at [phone]. Definitions: Foraminotomy: If part of the disc or a bone spur (osteophyte) is pressing on a nerve as it leaves the vertebra (through an exit called the foramen), a foraminotomy may be done. Otomy means "to make an opening." A foraminotomy is making the opening of the foramen larger, so the nerve can exit without being compressed. Laminotomy: Similar to the foraminotomy, a laminotomy makes a larger opening, this time in your bony plate protecting your spinal canal and spinal cord (the lamina). The lamina may be pressing on your nerve, so the surgeon may make more room for the nerves using a laminotomy. Laminectomy: Sometimes, a laminotomy is not sufficient. The surgeon may need to remove all or part of the lamina. This procedure is called a laminectomy. This can often be done at many levels without any harmful effects. Current Hospital Diet Patient's current hospital diet: Regular Diet Discharge Diet Recommended Diet: Regular Diet Procedures Procedures Performed: C3-C4, C4-C5 Anterior Cervical Discectomy with globus coalition at each intervertebral discectomy Left Carpal Tunnel Release Pending Studies Studies pending at discharge: no Medical Emergencies . Who to Call and When: Medical Emergencies: If at any time you feel your situation is an emergency, please call 911 immediately. . Non-Emergent Contact Non-Emergency issues call your: Primary Care Provider . "Provider Documentation" section prepared by Jim Menendez. . VTE Core Measure Inpt VTE Proph given/why not?: Treatment not indicated
[2017-03-11 12:52] VITALS: BP 139/89; PULSE 60; TEMP 36.5; O2SAT 95
== END 2017-03-11 13:55 | disposition home health service (06) ==
LOC: C.ACU 05:34 → C.3E 10:01 → ENRESERV 11:08
PROVIDERS: ADMIT Orthopaedic Surgery Orthopaedic Surgery of the Spine; ATTEND Orthopaedic Surgery Orthopaedic Surgery of the Spine
DX: M47.012 Anterior spinal artery compression syndromes, cervical region (principal); G56.03 Carpal tunnel syndrome, bilateral upper limbs; I10 Essential (primary) hypertension; J43.9 Emphysema, unspecified; Z79.899 Other long term (current) drug therapy

== ENCOUNTER 2017-03-11 00:51 | Emergency (ER) | payer OTHER ==
[~2017-03-11] VITALS: Ht 172.7 cm; Wt 131.4 kg
[~2017-03-11 00:51] MED LIST changes: +MISCCAP55; +OXYC-609
[2017-03-11 00:53] VITALS: BP 167/92; PULSE 85; TEMP 37; O2SAT 93; Ht 172.7 cm; Wt 131.4 kg
--- NOTE | 2017-03-11 04:50 | EMERGENCY ROOM VISIT NOTE ---
ED Visit Note First contact with patient: 01:01 This is a 52-year-old male patient who presents into the emergency department after signing out of his inpatient room AMA just 10-15 minutes ago. The patient had a spinal surgery as well as a carpal tunnel release yesterday. He became frustrated in his inpatient room because they would not allow him to sleep and he felt that he needed to smoke. The patient signed out AMA, walked outside and smoked a cigarette, then came back in requesting readmission to the hospital. I did not examine this patient. I discussed the case with the charge nurse and they arranged for the patient to go back up to his inpatient room.
--- NOTE | 2017-03-11 08:46 | Discharge Instructions ---
Discharge Instructions Date of Service Mar 11, 2017. Admission Reason for Admission: Spinal cord compression. Discharge Discharge Diagnosis / Problem: spinal cord compression, paryial paralysis Discharge Goals Goal(s): Improve function Activity Recommendations Activity Limitations: per Instructions/Follow-up section Lifting Limitations: no more than 5 pounds Exercise/Sports Limitations: until after follow-up appointment May Resume Sexual Activity: after follow-up appointment Shower/Bathe: keep incision dry Driving or Machine Use: Home rest recover his dressings are to be maintained at all time. The cervical spine dressing can be changed approximately every 48 hours in 24 hours is fine. A tunnel dressing can be changed in approximately 3 or 4 days. If the patient would prefer to wait to the office visit for dressing change that's fine on the carpal tunnel. No lifting bending stooping no driving . Instructions / Follow-Up Instructions / Follow-Up MEDICATIONS: Please take your prescriptions as instructed at your pre-op appointment. SPECIAL CARE: The following information is intended to answer some of the common questions and concerns regarding your surgery. Each patient is an individual and receives individual counselling throughout the course of treatment, from diagnosis to surgery all the way through recovery. What follows is not an exhaustive list, but should be a useful guide to some of the common questions and concerns patients have regarding their surgeries. These are not provided to keep you from calling us; rather, they give you something accurate and concrete to reference as you recover from your procedure. If you need us, we are available to you. As always, if you are not sure about something, call us at [phone]. MEDICAL EMERGENCIES: For these conditions, call 911 or go to your local hospital-based Emergency Department - not [facility] or equivalent. * Paralysis * Severe chest pain or difficulty breathing * Swelling or redness of either leg Spine procedures can be rather complex and though complications are rare, they do occur. In such cases, effective advice regarding emergency situations cannot always be addressed over the telephone. You may be referred to the emergency department for more effective management of your problem. Activity Limitations: It is important to give your body time to heal, so please limit your activities : * In general, don't do anything that moves your spine too much. You should avoid contact sports, twisting or heavy lifting while you recover. * 5-10 pounds is all you should attempt to lift. * You should not plan on driving for approximately 3 weeks and you should avoid traveling more than 30-45 minutes at a time. Longer trips should be broken down with walking breaks spaced appropriately. * Physical therapy is not usually required. * Walking and good posture practices will help you recover and regain your function. * Avoid straining or sudden changes in position. * In general, the goal is to take it easy and recover. Don't cause any new problems. Just relax. Showers: * Do not take a bath, use a Jacuzzi or hot tub or otherwise submerge your incision. * It is usually safe to take a shower 4-5 days after your surgery. * Your incision does not require any special creams or ointments. * Simply clean it with soap and water, dry and re-dress with a clean bandage afterwards. Incision: * Keep incision clean, dry and protected until your first follow-up appointment. * Some amount of drainage and redness is normal. Any drainage should be fairly clear and not have a foul odor. * If you feel anything is wrong or you have excessive drainage, please call us. * Your stitches and salina will be removed 10-14 days after your surgery. At the time of your first post-op visit. * Neck surgeries are typically closed with a suture underneath the skin. The steri-strips over the incision should be maintained until we see you in the office. Bracing: * You may be provided with a back or neck brace to encourage good posture and prevent injury. It will remind you not to do too much as you heal and will alert others to the fact that you have had a surgery. * Back braces may be removed for showers and when you are resting at home. They must be worn when you are walking around for any period of time or for travel. * For neck surgery, you will likely be provided with two cervical collars. The soft collar ([place] or foam rubber) is worn most commonly throughout the day and while sleeping. The plastic collar (provided at the hospital) is for showering/bathing. * Except while eating, collars should remain in place. More specifically, bracing is provided for a purpose and should be worn. * Please obtain your brace or collars prior to your operation and bring them to the hospital with you on the day of surgery. * You should also bring your collars to your post-op appointment with Dr. Menendez. You should always take good care of your body and practice healthy habits, especially following surgery. You should: * Follow your doctor's treatment plan * Sit and stand properly with good posture (ears over shoulders, shoulders over hips) Don't slouch * Learn to lift correctly * Exercise regularly (low-impact aerobic exercise is especially good, but check with your doctor first) * Generally, be up and walking for 5-10 minutes at a time at least 3-4 times per day from the day you get home * Increasing walking to tolerance until you can walk for 20-30 minutes at a time * Attain and maintain a healthy body weight * Eat healthy foods ( a well-balanced, low-fat diet rich in fruits and vegetables) and get enough calcium * Avoid excessive use of alcohol When to call our office - If you notice any of the following: * Increased pain not relieve by pain medicine * Fevers greater then 100 degrees F, chills or flu symptoms * Increased redness around incision * Drainage from the incision that is not clear * Any foul smelling drainage * Swelling or fluid collection beneath the skin Miscellaneous: * In the hospital, you may be given a walker or cane for support while walking. These are temporary needs and are intended to prevent injuries due to falls. You may discontinue them when you feel strong and steady enough on your feet. * Sleep in a comfortable position. We find that many patients find a lounge chair or recliner with several pillows to be beneficial in the early post-operative period. * The support stockings should be used for 7-10 days and may be discontinued when you are back to walking more and conducting usual household activities. No problem is insignificant. We are here to help you and get you well. Contact us at [phone]. Definitions: Foraminotomy: If part of the disc or a bone spur (osteophyte) is pressing on a nerve as it leaves the vertebra (through an exit called the foramen), a foraminotomy may be done. Otomy means "to make an opening." A foraminotomy is making the opening of the foramen larger, so the nerve can exit without being compressed. Laminotomy: Similar to the foraminotomy, a laminotomy makes a larger opening, this time in your bony plate protecting your spinal canal and spinal cord (the lamina). The lamina may be pressing on your nerve, so the surgeon may make more room for the nerves using a laminotomy. Laminectomy: Sometimes, a laminotomy is not sufficient. The surgeon may need to remove all or part of the lamina. This procedure is called a laminectomy. This can often be done at many levels without any harmful effects. Current Hospital Diet Patient's current hospital diet: Discharge Diet Recommended Diet: Full Liquid Diet Procedures Procedures Performed: Two-level anterior cervical discectomy and fusion for spinal cord compression. Release left carpal tunnel syndrome Pending Studies Studies pending at discharge: no Medical Emergencies . Who to Call and When: Medical Emergencies: If at any time you feel your situation is an emergency, please call 911 immediately. . Non-Emergent Contact Non-Emergency issues call your: Primary Care Provider . "Provider Documentation" section prepared by Jim Menendez. . VTE Core Measure Inpt VTE Proph given/why not?: Treatment not indicated
--- NOTE | 2017-03-11 08:52 | Discharge Instructions ---
Discharge Instructions Date of Service Mar 11, 2017. Admission Reason for Admission: PAIN Spinal cord compression C4 5 C5 6 cervical spine Discharge Discharge Diagnosis / Problem: same as above Discharge Goals Goal(s): Improve function Activity Recommendations Activity Limitations: as noted below Lifting Limitations: until after follow-up appointment Exercise/Sports Limitations: until after follow-up appointment May Resume Sexual Activity: after follow-up appointment Shower/Bathe: keep incision dry Short walks are permitted cervical collar is to be maintained. He may take the collar off to eat to eat. Otherwise the collar is to be worn and maintained at all times . For dressing changes. Otherwise it is to be worn. Instructions / Follow-Up Instructions / Follow-Up MEDICATIONS: Please take your prescriptions as instructed at your pre-op appointment. SPECIAL CARE: The following information is intended to answer some of the common questions and concerns regarding your surgery. Each patient is an individual and receives individual counselling throughout the course of treatment, from diagnosis to surgery all the way through recovery. What follows is not an exhaustive list, but should be a useful guide to some of the common questions and concerns patients have regarding their surgeries. These are not provided to keep you from calling us; rather, they give you something accurate and concrete to reference as you recover from your procedure. If you need us, we are available to you. As always, if you are not sure about something, call us at [phone]. MEDICAL EMERGENCIES: For these conditions, call 911 or go to your local hospital-based Emergency Department - not [facility] or equivalent. * Paralysis * Severe chest pain or difficulty breathing * Swelling or redness of either leg Spine procedures can be rather complex and though complications are rare, they do occur. In such cases, effective advice regarding emergency situations cannot always be addressed over the telephone. You may be referred to the emergency department for more effective management of your problem. Activity Limitations: It is important to give your body time to heal, so please limit your activities : * In general, don't do anything that moves your spine too much. You should avoid contact sports, twisting or heavy lifting while you recover. * 5-10 pounds is all you should attempt to lift. * You should not plan on driving for approximately 3 weeks and you should avoid traveling more than 30-45 minutes at a time. Longer trips should be broken down with walking breaks spaced appropriately. * Physical therapy is not usually required. * Walking and good posture practices will help you recover and regain your function. * Avoid straining or sudden changes in position. * In general, the goal is to take it easy and recover. Don't cause any new problems. Just relax. Showers: * Do not take a bath, use a Jacuzzi or hot tub or otherwise submerge your incision. * It is usually safe to take a shower 4-5 days after your surgery. * Your incision does not require any special creams or ointments. * Simply clean it with soap and water, dry and re-dress with a clean bandage afterwards. Incision: * Keep incision clean, dry and protected until your first follow-up appointment. * Some amount of drainage and redness is normal. Any drainage should be fairly clear and not have a foul odor. * If you feel anything is wrong or you have excessive drainage, please call us. * Your stitches and salina will be removed 10-14 days after your surgery. At the time of your first post-op visit. * Neck surgeries are typically closed with a suture underneath the skin. The steri-strips over the incision should be maintained until we see you in the office. Bracing: * You may be provided with a back or neck brace to encourage good posture and prevent injury. It will remind you not to do too much as you heal and will alert others to the fact that you have had a surgery. * Back braces may be removed for showers and when you are resting at home. They must be worn when you are walking around for any period of time or for travel. * For neck surgery, you will likely be provided with two cervical collars. The soft collar ([place] or foam rubber) is worn most commonly throughout the day and while sleeping. The plastic collar (provided at the hospital) is for showering/bathing. * Except while eating, collars should remain in place. More specifically, bracing is provided for a purpose and should be worn. * Please obtain your brace or collars prior to your operation and bring them to the hospital with you on the day of surgery. * You should also bring your collars to your post-op appointment with Dr. Menendez. You should always take good care of your body and practice healthy habits, especially following surgery. You should: * Follow your doctor's treatment plan * Sit and stand properly with good posture (ears over shoulders, shoulders over hips) Don't slouch * Learn to lift correctly * Exercise regularly (low-impact aerobic exercise is especially good, but check with your doctor first) * Generally, be up and walking for 5-10 minutes at a time at least 3-4 times per day from the day you get home * Increasing walking to tolerance until you can walk for 20-30 minutes at a time * Attain and maintain a healthy body weight * Eat healthy foods ( a well-balanced, low-fat diet rich in fruits and vegetables) and get enough calcium * Avoid excessive use of alcohol When to call our office - If you notice any of the following: * Increased pain not relieve by pain medicine * Fevers greater then 100 degrees F, chills or flu symptoms * Increased redness around incision * Drainage from the incision that is not clear * Any foul smelling drainage * Swelling or fluid collection beneath the skin Miscellaneous: * In the hospital, you may be given a walker or cane for support while walking. These are temporary needs and are intended to prevent injuries due to falls. You may discontinue them when you feel strong and steady enough on your feet. * Sleep in a comfortable position. We find that many patients find a lounge chair or recliner with several pillows to be beneficial in the early post-operative period. * The support stockings should be used for 7-10 days and may be discontinued when you are back to walking more and conducting usual household activities. No problem is insignificant. We are here to help you and get you well. Contact us at [phone]. Definitions: Foraminotomy: If part of the disc or a bone spur (osteophyte) is pressing on a nerve as it leaves the vertebra (through an exit called the foramen), a foraminotomy may be done. Otomy means "to make an opening." A foraminotomy is making the opening of the foramen larger, so the nerve can exit without being compressed. Laminotomy: Similar to the foraminotomy, a laminotomy makes a larger opening, this time in your bony plate protecting your spinal canal and spinal cord (the lamina). The lamina may be pressing on your nerve, so the surgeon may make more room for the nerves using a laminotomy. Laminectomy: Sometimes, a laminotomy is not sufficient. The surgeon may need to remove all or part of the lamina. This procedure is called a laminectomy. This can often be done at many levels without any harmful effects. Current Hospital Diet Patient's current hospital diet: Discharge Diet Recommended Diet: Full Liquid Diet Procedures Procedures Performed: Two-level anterior cervical discectomy and fusion for spinal cord compression. Release left carpal tunnel syndrome Pending Studies Studies pending at discharge: no Medical Emergencies . Who to Call and When: Medical Emergencies: If at any time you feel your situation is an emergency, please call 911 immediately. . Non-Emergent Contact Non-Emergency issues call your: Primary Care Provider . "Provider Documentation" section prepared by Jim Menendez. . VTE Core Measure Inpt VTE Proph given/why not?: Treatment not indicated
--- NOTE | 2017-03-11 08:56 | Discharge Summary ---
Orthopedic Discharge Summary Admission Date/Reason Spinal cord compression C3 4 C4 5 cervical spine Discharge Date/Disposition Mar 11, 2017 Home with services Diagnosis Principal Diagnosis: Spinal cord compression Secondary Diagnoses/Problems: Carpal tunnel syndrome, obesity, COPD Procedure(s) Performed Two-level anterior cervical discectomy for spinal cord compression and cervical spine. Left carpal tunnel release Medication Reconciliation [place] for pain Admission Physical Exam As per Admitting History & Physical. Hospital Course Patient had a uneventful course the hospital he was admitted for spinal cord compression fairly significant cervical spine surgery. He wa I'd recommend the dressings be changed approximately every 48 hours s seen on rounds each and every day as of Monday he was improved stable taking by mouth pain controlled in my opinion stable for discharge planning. He does live alone at home so we did put an order in for home health services helping with dressing changes. I recommend dressing changes approximately every 48 hours Discharge Instructions Please refer to the electronic Patient Visit Report (Discharge Instructions) for additional information.
--- NOTE | 2017-03-11 09:03 | [facility] Operative Report ---
Operative Report Operative Date Mar 11, 2017. Pre-Operative Diagnosis Spinal cord compression cervical spine C3 4 C4 5. Left carpal tunnel syndrome Post-Operative Diagnosis Same as above Procedure(s) Performed Two-level anterior cervical discectomy and fusion for spinal cord compression. Release left carpal tunnel syndrome Surgeon Findings Spinal cord compression or carpal tunnel pressure Complication(s) None Disposition Recovery Room / PACU Indications Spinal cord compression. Absence of strength to bilateral upper extremities and weakness to his lower extremities Description of Procedure Patient was taken to the operating room a general intubated anesthetic provided to the patient. He was prepped and draped sterile. Left carpal tunnel was also prepped draped sterile. We commenced with the carpal tunnel syndrome surgery first. Tourniquet applied to his left upper extremity elevated to 250 of mercury. We made a skin incision fascial incision divide the transverse carpal ligament with a 15 scalpel blade the nerve was quite compressed very pleased with the release. He was closed with 4-0 nylon suture sterile dressing applied. We then were able to place both his arms down to the sides prepped and draped cervical spine with Betadine and then with ChloraPrep. We made a transverse skin incision fascial incision able to get down the cervical spine region. Formal discectomies were performed at C3 4 C4 5 I took out all disc material I was posterior to the posterior longitudinal ligament completely evacuating the disc areas. Placed the globus implant called coalition at C4 5 and C3 4 for cervical spine. This was packed with autograft and allograft. The implants were secured. We irrigated thoroughly and closed over a [place] drain with 2-0 Vicryl suture running Monocryl suture. Sterile dressings applied the patient extubated to PACU stable there were no interoperative complications sponge and needle count correct at the close of procedure. Thank you I attest to the content of the Intraoperative Record and any orders documented therein. Any exceptions are noted below.
--- NOTE | 2017-03-11 12:14 | Discharge Instructions ---
Discharge Instructions Date of Service Mar 11, 2017. Admission Reason for Admission: PAIN Discharge Discharge Diagnosis / Problem: cord compression Discharge Goals Goal(s): Improve function Activity Recommendations Activity Limitations: as noted below Lifting Limitations: until after follow-up appointment Exercise/Sports Limitations: until after follow-up appointment May Resume Sexual Activity: after follow-up appointment Shower/Bathe: keep incision dry Driving or Machine Use: home ,rest, recover . Instructions / Follow-Up Instructions / Follow-Up MEDICATIONS: Please take your prescriptions as instructed at your pre-op appointment. SPECIAL CARE: The following information is intended to answer some of the common questions and concerns regarding your surgery. Each patient is an individual and receives individual counselling throughout the course of treatment, from diagnosis to surgery all the way through recovery. What follows is not an exhaustive list, but should be a useful guide to some of the common questions and concerns patients have regarding their surgeries. These are not provided to keep you from calling us; rather, they give you something accurate and concrete to reference as you recover from your procedure. If you need us, we are available to you. As always, if you are not sure about something, call us at [phone]. MEDICAL EMERGENCIES: For these conditions, call 911 or go to your local hospital-based Emergency Department - not [facility] or equivalent. * Paralysis * Severe chest pain or difficulty breathing * Swelling or redness of either leg Spine procedures can be rather complex and though complications are rare, they do occur. In such cases, effective advice regarding emergency situations cannot always be addressed over the telephone. You may be referred to the emergency department for more effective management of your problem. Activity Limitations: It is important to give your body time to heal, so please limit your activities : * In general, don't do anything that moves your spine too much. You should avoid contact sports, twisting or heavy lifting while you recover. * 5-10 pounds is all you should attempt to lift. * You should not plan on driving for approximately 3 weeks and you should avoid traveling more than 30-45 minutes at a time. Longer trips should be broken down with walking breaks spaced appropriately. * Physical therapy is not usually required. * Walking and good posture practices will help you recover and regain your function. * Avoid straining or sudden changes in position. * In general, the goal is to take it easy and recover. Don't cause any new problems. Just relax. Showers: * Do not take a bath, use a Jacuzzi or hot tub or otherwise submerge your incision. * It is usually safe to take a shower 4-5 days after your surgery. * Your incision does not require any special creams or ointments. * Simply clean it with soap and water, dry and re-dress with a clean bandage afterwards. Incision: * Keep incision clean, dry and protected until your first follow-up appointment. * Some amount of drainage and redness is normal. Any drainage should be fairly clear and not have a foul odor. * If you feel anything is wrong or you have excessive drainage, please call us. * Your stitches and salina will be removed 10-14 days after your surgery. At the time of your first post-op visit. * Neck surgeries are typically closed with a suture underneath the skin. The steri-strips over the incision should be maintained until we see you in the office. Bracing: * You may be provided with a back or neck brace to encourage good posture and prevent injury. It will remind you not to do too much as you heal and will alert others to the fact that you have had a surgery. * Back braces may be removed for showers and when you are resting at home. They must be worn when you are walking around for any period of time or for travel. * For neck surgery, you will likely be provided with two cervical collars. The soft collar ([place] or foam rubber) is worn most commonly throughout the day and while sleeping. The plastic collar (provided at the hospital) is for showering/bathing. * Except while eating, collars should remain in place. More specifically, bracing is provided for a purpose and should be worn. * Please obtain your brace or collars prior to your operation and bring them to the hospital with you on the day of surgery. * You should also bring your collars to your post-op appointment with Dr. Menendez. You should always take good care of your body and practice healthy habits, especially following surgery. You should: * Follow your doctor's treatment plan * Sit and stand properly with good posture (ears over shoulders, shoulders over hips) Don't slouch * Learn to lift correctly * Exercise regularly (low-impact aerobic exercise is especially good, but check with your doctor first) * Generally, be up and walking for 5-10 minutes at a time at least 3-4 times per day from the day you get home * Increasing walking to tolerance until you can walk for 20-30 minutes at a time * Attain and maintain a healthy body weight * Eat healthy foods ( a well-balanced, low-fat diet rich in fruits and vegetables) and get enough calcium * Avoid excessive use of alcohol When to call our office - If you notice any of the following: * Increased pain not relieve by pain medicine * Fevers greater then 100 degrees F, chills or flu symptoms * Increased redness around incision * Drainage from the incision that is not clear * Any foul smelling drainage * Swelling or fluid collection beneath the skin Miscellaneous: * In the hospital, you may be given a walker or cane for support while walking. These are temporary needs and are intended to prevent injuries due to falls. You may discontinue them when you feel strong and steady enough on your feet. * Sleep in a comfortable position. We find that many patients find a lounge chair or recliner with several pillows to be beneficial in the early post-operative period. * The support stockings should be used for 7-10 days and may be discontinued when you are back to walking more and conducting usual household activities. No problem is insignificant. We are here to help you and get you well. Contact us at [phone]. Definitions: Foraminotomy: If part of the disc or a bone spur (osteophyte) is pressing on a nerve as it leaves the vertebra (through an exit called the foramen), a foraminotomy may be done. Otomy means "to make an opening." A foraminotomy is making the opening of the foramen larger, so the nerve can exit without being compressed. Laminotomy: Similar to the foraminotomy, a laminotomy makes a larger opening, this time in your bony plate protecting your spinal canal and spinal cord (the lamina). The lamina may be pressing on your nerve, so the surgeon may make more room for the nerves using a laminotomy. Laminectomy: Sometimes, a laminotomy is not sufficient. The surgeon may need to remove all or part of the lamina. This procedure is called a laminectomy. This can often be done at many levels without any harmful effects. Current Hospital Diet Patient's current hospital diet: Discharge Diet Recommended Diet: Regular Diet Procedures Procedures Performed: Two-level anterior cervical discectomy and fusion for spinal cord compression. Release left carpal tunnel syndrome Pending Studies Studies pending at discharge: no Medical Emergencies . Who to Call and When: Medical Emergencies: If at any time you feel your situation is an emergency, please call 911 immediately. . Non-Emergent Contact Non-Emergency issues call your: Primary Care Provider . "Provider Documentation" section prepared by Jim Menendez. . VTE Core Measure Inpt VTE Proph given/why not?: Treatment not indicated
--- NOTE | 2017-03-11 12:23 | Discharge Summary ---
Orthopedic Discharge Summary Admission Date/Reason PAIN. Discharge Date/Disposition Mar 11, 2017 Home with services Diagnosis Principal Diagnosis: Spinal cord compression Admission Physical Exam As per Admitting History & Physical. Discharge Instructions Please refer to the electronic Patient Visit Report (Discharge Instructions) for additional information.
== END 2017-03-11 01:30 | disposition still patient (30) ==
LOC: C.EDB 00:52
DX: G95.20 Unspecified cord compression (principal); G56.00 Carpal tunnel syndrome, unspecified upper limb; E66.9 Obesity, unspecified; J44.9 Chronic obstructive pulmonary disease, unspecified